=== PATIENT | male | born 1990 | race Caucasian/White ===

== ENCOUNTER 2024-05-03 00:33 | Emergency (ER) | payer BC, OTHER ==
[~2024-05-03] VITALS: Ht 190.5 cm; Wt 113.6 kg
--- NOTE | 2024-05-03 00:50 | ED.PDOC ---
History of Present Illness HPI Comments 34-year-old male came to ER via EMS for alcohol intoxication. Per EMS, patient was picked up at home, was drinking heavily, decided to go to the bathroom but he fell, hitting his head on the bathroom floor. Patient then started having episodes of nausea and vomiting. Patient intoxicated with alcohol at this time of care Chief Complaint: ETOH Time Seen by MD: 00:49 Reviewed Notes: Nurses Notes, Sewing Inspector Notes Allergies: Coded Allergies: NO KNOWN ALLERGIES (Unverified , 05/03/24) Information Source: Patient, Emergency Med Personnel Mode of Arrival: EMS Severity: Moderate Timing: Hours Duration: Since onset Prehospital treatment: None Past Medical History PAST MEDICAL HISTORY: Unobtainable Surgical History: Unobtainable Family History Family History: Unobtainable Social History Smoker: Unobtainable Alcohol: Heavy Drugs: Unobtainable Lives In: Home Constitutional: denies: chills, diaphoresis, fatigue, fever, malaise, sweats, weakness, others EENTM: reports: others (Head trauma); denies: blurred vision, double vision, ear bleeding, ear discharge, ear drainage, ear pain, ear ringing, eye pain, eye redness, hearing loss, mouth pain, mouth swelling, nasal discharge, nose bleeding, nose congestion, nose pain, photophobia, tearing, throat pain, throat swelling, voice changes Respiratory: denies: cough, hemoptysis, orthopnea, SOB at rest, shortness of breath, SOB with excertion, stridor, wheezing, others Cardiovascular: denies: chest pain, dizzy spells, diaphoresis, Dyspnea on exertion, edema, irregular heart beat, left arm pain, lightheadedness, palpitations, PND, syncope, others Gastrointestinal: denies: abdomen distended, abdominal pain, blood streaked bowels, constipated, diarrhea, dysphagia, difficulty swallowing, hematemesis, melena, nausea, poor appetite, poor fluid intake, rectal bleeding, rectal pain, vomiting, others Genitourinary: denies: burning, dysuria, flank pain, frequency, hematuria, incontinence, penile discharge, penile sore, pain, testicle pain, testicle swelling, urgency, others Neurological: denies: dizziness, fainting, headache, left sided numbness, left sided weakness, numbness, paresthesia, pre-existing deficit, right sided numbness, right sided weakness, seizure, speech problems, tingling, tremors, weakness, others Musculoskeletal: denies: back pain, gout, joint pain, joint swelling, muscle pain, muscle stiffness, neck pain, others Integumetry: denies: bruises, change in color, change in hair/nails, dryness, laceration, lesions, lumps, rash, wounds, others Allergic/Immunocompromised: denies: Difficulty Healing, Frequent Infections, Hives, Itching, others Hematologic/Lymphatic: denies: anemia, blood clots, easy bleeding, easy bruising, swollen glands, others Endocrine: denies: excessive hunger, excessive sweating, excessive thirst, excessive urination, flushing, intolerance to cold, intolerance to heat, unexplained weight gain, unexplained weight loss, others Psychiatric: denies: anxiety, bipolar disorder, depression, hopeless, panic disorder, schizophrenia, sleepless, suicidal, others Unable to Obtain due to: Altered Mental Status ( due to alcohol intoxication), Other (Patient intoxicated with alcohol) Physical Exam General Appearance: Mild Distress ( patient has some mild facial wounds but is obtunded at time of evaluation.), Obese HEENT: Normal ENT Inspection, Pharynx Normal, TMs Normal Neck: Full Range of Motion, Non-Tender, Normal, Normal Inspection Respiratory: Chest Non-Tender, Lungs Clear, No Accessory Muscle Use, No Respiratory Distress, Normal Breath Sounds Cardiovascular: No Edema, No JVD, No Murmur, No Gallop, Normal Peripheral Pulses, Regular Rate/Rhythm Breast Exam: Deferred Gastrointestinal: No Organomegaly, Non Tender, No Pulsatile Mass, Normal Bowel Sounds, Soft Genitalia: Deferred Pelvic: Deferred Rectal: Deferred Extremities: No calf tenderness, Normal capillary refill, Normal inspection, Normal range of motion, Non-tender, No pedal edema Musculoskeletal : Apperance: Normal Neurologic: NOT DONE Cerebellar Function: NOT DONE Reflexes: NOT DONE Skin: Dry, Normal Color, Warm Lymphatic: No Adenopathy Was a procedure done? Was a procedure done?: No Differential Dx Considerations may include: Alcohol intoxication, head injury, fall injury, vomiting X-Ray, Labs, Meds, VS Vital Signs Date Time Temp Pulse Resp B/P (MAP) Pulse Ox O2 Delivery O2 Flow Rate FiO2 05/03/24 00:40 98.6 80 15 128/77 (94) 94 98.6 X-Ray, Labs, Meds, VS Comment All studies performed the ED were evaluated by me personally periods head CT was unremarkable for any acute intracranial process. No skull fractures, subarachnoid hemorrhages or subdural hematomas. Patient will finish his fluid therapy and they will be discharged to a family or friend. Time of 1ST Reevaluation: 02:20 Reevaluation 1ST: Improved Consultation: PCP Patient Education/Counseling: Diagnosis, Treatment Family Education/Counseling: Diagnosis, Treatment, No Family Present Departure 1 Departure Time of Disposition: 02:20 Impression: Primary Impression: Alcohol intoxication Additional Impressions: Alcohol abuse Head trauma Disposition: HOME / SELF CARE / HOMELESS Condition: Stable Additional Instructions: Advised patient utilize pain medication as needed for symptomatic relief as well as good hydration and healthy nutrition over the next week. e-Prescriptions Ibuprofen Micronized (Ibuprofen) 800 Mg Tab 800 MG PO Q8HP PRN, #15 TAB Prov: LEXIS RIDER PAC 05/03/24 Ondansetron Odt 4MG Tab (ZOFRAN PO) 4 Mg Tb 4 MG PO Q6HP PRN, #10 TAB ODT TAB-DISSOLVE IN MOUTH, THEN SWALLOW Prov: LEXIS RIDER PAC 05/03/24 Acetaminophen (Acetaminophen) 500 Mg Tab 500 MG PO Q4HP PRN, #30 TAB Prov: LEXIS RIDER PAC 05/03/24 Discharged With: Self, Friend Critical Care Note Critical Care Time?: No Stability Stability form required: No Heart Score Heart Score: Heart Score Response (Comments) Value History N/A 0 EKG N/A 0 Age N/A 0 Risk Factors N/A 0 Troponin N/A 0 Total 0 I personally scribed for LEXIS RIDER PAC ([email or web address]) on 05/03/24 at 00:49. Electronically submitted by Johan Otniveros ([email or web address]). LEXIS RIDER PAC May 03, 2024 00:49
--- NOTE | 2024-05-03 01:56 | DVH ---
CLINICAL HISTORY: Head trauma TECHNIQUE: Helical imaging carried out from skull base to vertex without intravenous contrast. This e xam was performed according to our departmental dose optimization program. Up-to-date CT equipment an d radiation dose reduction techniques are utilized as appropriate. CTDIVol: 67.79 mGy DLP: 1335.61 mGy-cm WID: COMPARISON: None FINDINGS: Small left forehead and left periorbital soft tissue contusion. The ventricles and subarachnoid spaces are normal in size and configuration. There is no midline joya ft or mass effect. The loco white matter interfaces are maintained. The basal cisterns are patent. Th ere is no evidence of acute intracranial hemorrhage or extra-axial fluid collection. The mastoid air cells and visualized paranasal sinuses are well-aerated aside from mild mucosal thickening of the zachariah ateral maxillary sinuses. IMPRESSION: 1. No acute intracranial abnormality. 2. Small left forehead and left periorbital soft tissue contusion.
[2024-05-03 02:00] VITALS: TEMP 98.3
[2024-05-03 02:20] VITALS: PULSE 96; RESP 20; O2SAT 96
[2024-05-03] MEDS ORDERED: IBUP-1455 PO (02:22)
[2024-05-03] MEDS ORDERED: ZOFR4T PO (02:22)
[2024-05-03] MEDS ORDERED: ACET500T58 PO (02:22)
[2024-05-03] MEDS: SODIUM CHLORIDE 0.9% 2,000 ML IV ONE (03:00)
[2024-05-03] MEDS: THIAMINE 100mg/ml INJ (200mg/2ml VIAL) IV ONE (03:15)
[2024-05-03] MEDS: ONDANSETRON HCL 4 MG/2 ML VIAL IV ONE (03:15)
[2024-05-03 04:05] VITALS: BP 135/70; PULSE 96; RESP 20; O2SAT 96
== END 2024-05-03 04:30 | disposition home or self-care (01) ==
LOC: EDBD 00:33 → ER 00:33
DX: S09.90XA Unspecified injury of head, initial encounter (principal); F10.129 Alcohol abuse with intoxication, unspecified; W18.39XA Other fall on same level, initial encounter; Y92.009 Unspecified place in unspecified non-institutional (private) residence as the place of occurrence of the external cause; Y93.89 Activity, other specified; Y99.8 Other external cause status; Y90.9 Presence of alcohol in blood, level not specified
CPT/HCPCS: 70450; 96361; 96374; 96375; 99285; J2405; J3411; J7030